=== PATIENT | male | born 1975 | race Hispanic/Latino ===

== ENCOUNTER 2021-06-09 09:36 | Emergency (ER) | payer OTHER, BC ==
[~2021-06-09] VITALS: Ht 180.3 cm; Wt 111.6 kg
[2021-06-09] MEDS ORDERED: 0.9%NACL 1000ML 1,000 ML IV ONE (10:16)
[2021-06-09 10:20] LABS: BASOPHILS % (AUTO) 0.6 % (0.0-5.0); HEMATOCRIT 46.4 % (42-54); LYMPHOCYTES % (AUTO) 28.4 % (21.0-51.0); MEAN CORPUSCULAR HEMOGLOBIN 30.4 pg (27.0-33.0); MEAN CORPUSCULAR HGB CONC 34.5 g/dL (32.0-36.0); MONOCYTES % (AUTO) 11.3 % (3.0-13.0); NEUTROPHILS % (AUTO) 47.4 % (40.0-77.0); PLATELET COUNT (AUTO) 182 K/uL (130-400); RED BLOOD CELL COUNT(AUTO) 5.27 MIL/uL (4.50-6.20); WHITE BLOOD COUNT (AUTO) 6.4 K/uL (4.8-10.8)
[2021-06-09 10:29] LABS: CREATININE 0.9 mg/dL (0.5-1.5); POTASSIUM 3.9 mmol/L (3.5-5.1)
[2021-06-09] MEDS ORDERED: MORPHINE 4 MG SYG IVP SCH (10:30)
[2021-06-09] MEDS ORDERED: 0.9%NACL 1000ML 1,000 ML IV SCH (10:30)
[2021-06-09] MEDS ORDERED: ONDANSETRON 4MG INJ IVP SCH (10:30)
[2021-06-09 10:36] LABS: BILIRUBIN,TOTAL 0.7 mg/dL (0.2-1.0); TOTAL PROTEIN, SERUM 7.6 g/dL (6.0-8.3)
[2021-06-09] MEDS ORDERED: IOHEXOL-350 75 ML VIAL IV ONE (11:19)
[2021-06-09] MEDS ORDERED: ZOSYN 3.375GM +NS 50ML IV SCH (12:30)
[2021-06-09] MEDS ORDERED: 0.9%NACL 50ML 50 ML IV ONE (12:40)
[2021-06-09] MEDS ORDERED: AMOX-429 PO (13:03)
[2021-06-09] MEDS ORDERED: HYOS0.124 SL (13:03)
[2021-06-09 13:21] LABS: APPEARANCE,URINE Clear (CLEAR); BILIRUBIN,URINE Negative (NEGATIVE); COLOR,URINE Yellow (YELLOW); GLUCOSE, URINE (UA) Negative (NEGATIVE); KETONES,URINE Negative (NEGATIVE); LEUKOCYTE ESTERASE ,URINE Negative (NEGATIVE); NITRATE,URINE Negative (NEGATIVE); OCCULT BLOOD,URINE Negative (NEGATIVE); PROTEIN,URINE Negative (NEGATIVE); UROBILINOGEN,URINE 0.2 mg/dL (0.2-1.0)
[2021-06-09 13:55] VITALS: BP 126/65
== END 2021-06-09 14:06 | disposition home or self-care (01) ==
LOC: EDH 09:36
DX: K57.32 Diverticulitis of large intestine without perforation or abscess without bleeding (principal); M19.90 Unspecified osteoarthritis, unspecified site; Z79.899 Other long term (current) drug therapy
CPT/HCPCS: 36415; 74177; 80053; 81003; 83690; 85025; 96361; 96365; 96375; 99285; J2270; J2405; J2543; J7030; Q9967